=== PATIENT | female | born 1995 | race Caucasian/White ===

== ENCOUNTER 2017-07-18 13:38 | Emergency (ER) | payer MEDICAID ==
[2017-02-02 21:54] VITALS: Ht 160 cm; Wt 79.4 kg
[~2017-07-18] VITALS: Ht 160 cm; Wt 79.4 kg
[~2017-07-18 13:38] MED LIST: ACET500T68 PO; CEPH500T7 PO; CYCL10TA29 PO; DOCU-416 PO; IBUP800T37 PO; ONDA4TAB97 PO; OXYC-865 PO; PREN-127 PO
--- NOTE | 2017-07-18 13:40 | ER Report ---
History and Physical Time Seen By MD: 13:40 HPI/ROS CHIEF COMPLAINT: Right wrist pain HISTORY OF PRESENT ILLNESS: Patient is a 21-year-old female who is being followed by Dr. Mora at [facility] for right wrist injury. She had been in a cast for the past 4 weeks which was just removed about 2-3 days ago. She has returned to work, but states since removal of the cast she's having increasing pain. Is unclear exactly what the nature of the injury as the patient is unable to give me a specific diagnosis. But it sounds as if she may have had some ligamentous injuries possibly to the scapholunate joint and the lateral wrist retinaculum. Patient received all of her care at [facility] I'm unable to pull up any outside records to find out what the actual diagnosis and treatment was. Patient is right-hand dominant. 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 REVIEW OF SYSTEMS: Respiratory: No cough, no dyspnea. Cardiovascular: No chest pain, no palpitations. Gastrointestinal: No vomiting, no abdominal pain. Musculoskeletal: No back pain. Allergies: Coded Allergies: Latex, Natural Rubber (Verified Allergy, Unknown, 02/10/17) Penicillins (Verified Allergy, Unknown, rash, 02/10/17) shellfish derived (Verified Allergy, Unknown, 02/10/17) Home Meds Active Scripts Hydrocodone Bit/Acetaminophen (HYDROCODON-ACETAMINOPHEN 5-325) 1 Each Tablet, 1 EACH PO Q6-8H Y for PAIN, #15 TAB 0 Refills TAKE ONE TABLET BY MOUTH EVERY 4-6 HOURS NEEDED FOR PAIN Prov:PALOOM ALICEA MD 07/18/17 Reported Medications Fluoxetine Hcl (FLUOXETINE HCL) 20 Mg Capsule, 20 MG PO QDAY, CAPSULE 07/18/17 Clonazepam (CLONAZEPAM) 1 Mg Tab.rapdis, 1 MG PO BID, #6 TAB 07/18/17 Discontinued Scripts Cephalexin 500 Mg Tab (KEFLEX 500 MG TAB) 500 Mg Tablet, 500 MG PO Q6H, #28 TAB Prov:ELIANA SIFUENTES PA-C 05/04/17 Past Medical/Surgical History Right wrist injury Hx Smoking: Yes (not in pg) Smoking Status: Former Smoker Exposure to Second Hand Smoke?: No Hx Substance Use Disorder: No Hx Alcohol Use: No Constitutional Vital Sign - Last 24 Hours 07/18/17 07/18/17 07/18/17 14:00 14:09 14:41 Temp 98.0 98.0 Pulse 70 70 Resp 18 16 B/P (MAP) 115/76 119/83 (95) Pulse Ox 94 95 O2 Delivery Room Air Room Air Physical Exam General appearance: alert no distress Right hand: There is no significant swelling. There is no obvious deformity to the hand. There is moderate tenderness of the in the snuffbox is also tenderness over the distal ulna. The patient is able to give a thumbs up sign, is able to make an okay sign, and is able to AB duct the fingers. Sensation is intact over the dorsal 1st web space, the volar aspect of the 2nd finger, and the volar aspect of the 5th finger. Capillary refill is brisk. Vascular exam: Normal pulses and capillary refill in the fingers [ ] DIFFERENTIAL DIAGNOSIS: After history and physical exam differential diagnosis was considered for hand injury including contusion, fracture, ligamentous and tendon injuries. Medical Decision Making ED Course/Re-evaluation ED Course 07/18/2017 2:22:03 pm Plan at this time will be to re-x-ray of the right wrist. If negative I will place in a thumb spica splint will have patient follow up with Dr. Mora and we' ll give a short course of pain medicine Decision to Disposition Date: Jul 18, 2017 Decision to Disposition Time: 14:35 Depart Departure Latest Vital Signs Vital Signs Date Time Temp Pulse Resp B/P (MAP) Pulse Ox O2 Delivery O2 Flow Rate FiO2 07/18/17 14:41 70 16 119/83 (95) 95 Room Air 07/18/17 14:09 98.0 Impression: Primary Impression: Wrist pain, right Condition: Improved Disposition: HOME OR SELF-CARE Referrals: HAILEY MORA MD New Scripts Hydrocodone Bit/Acetaminophen (HYDROCODON-ACETAMINOPHEN 5-325) 1 Each Tablet 1 EACH PO Q6-8H Y for PAIN, #15 TAB 0 Refills TAKE ONE TABLET BY MOUTH EVERY 4-6 HOURS NEEDED FOR PAIN Prov: PALOMO ALICEA MD 07/18/17 Patient Instructions: Splint Care (DC), Wrist Injury (ED) PALOMO ALICEA MD Jul 18, 2017 13:40
[2017-07-18] MEDS ORDERED: IBUPROFEN 800 MG TAB PO ONE (13:45)
[2017-07-18] MEDS ORDERED: CLON-389 PO (14:14)
[2017-07-18] MEDS ORDERED: FLUO-177 PO (14:15)
[2017-07-18] MEDS ORDERED: LOR5/325 PO (14:27)
[2017-07-18 14:41] VITALS: BP 119/83
--- NOTE | 2017-07-18 14:44 | RADIOLOGY IMAGING REPORT ---
FACILITY: [facility] - [place] PATIENT NAME: Naima Martinez : 1995 MR: [id number] V: [id number] EXAM DATE: ORDERING PHYSICIAN: PALOMO ALICEA TECHNOLOGIST: Location: [facility] Patient: Naima Martinez : 1995 Visit/Account:[id number] Date of Sevice: 07/18/2017 Exam type: WRIST RIGHT MIN 3 VIEW History: The one month ago, was casted with new pain Comparison: June 06, 2017 Findings: There is no evidence of acute fracture or dislocation identified. There appears to be subtle soft ti ssue swelling about the radiocarpal joint.. IMPRESSION: 1. No evidence of acute fracture dislocation involving the right wrist although there appears to be subtle soft tissue swelling about the right radiocarpal joint. Report Dictated By: Shonda Smith MD at 07/18/2017 2:39 PM Report E-Signed By: Shonda Smith MD at 07/18/2017 2:40 PM WSN:DULCE MARIA
== END 2017-07-18 14:52 | disposition home or self-care (01) ==
LOC: ER 13:40
DX: M25.531 Pain in right wrist (principal)
CPT/HCPCS: 99282

== ENCOUNTER 2017-07-20 11:58 | Emergency (ER) | payer MEDICAID ==
[2017-02-02 21:54] VITALS: Ht 160 cm; Wt 79.4 kg
[~2017-07-20] VITALS: Ht 160 cm; Wt 79.4 kg
[~2017-07-20 11:58] MED LIST changes: +CLON-389 PO; +FLUO-177 PO; +LOR5/325 PO
--- NOTE | 2017-07-20 12:03 | ER Report ---
History and Physical Time Seen By MD: 12:03 HPI/ROS CHIEF COMPLAINT: Left wrist pain HISTORY OF PRESENT ILLNESS: Patient is a 21-year-old female who I saw on July 18 for complaint of right wrist pain. She states that she had been followed by Dr. Mora for some ligamentous injuries. And just recently had a cast removed. She is having severe pain while at work she stated that she was going to be following up with Dr. johnson soon. I did some x-rays at that time which failed to reveal any bony type of injury. Neurological exam at that time and muscul0 skeletal exam normal; patient during her initial visit asked specifically about prescription for narcotic pain pain medication stating that her traditional [id number] pain medicines were not working. We did prescribe Vicodin with instructions to take one tablet every 6-8 hours as needed for pain with a supply of 15 tablets. Patient states that she was taking 2 tablets every 4 hours which again was not the way the medication was prescribed. Nursing staff (Jemma Agosto) informed me as well that she wanted to be changed to the 10 mg form of hydrocodone just prior to her visit today. Patient states that she was at work today of the splint was intact but states that she was having severe pain work and had to leave. Allergies: Coded Allergies: Latex, Natural Rubber (Verified Allergy, Unknown, 07/20/17) Penicillins (Verified Allergy, Unknown, rash, 07/20/17) shellfish derived (Verified Allergy, Unknown, 07/20/17) Home Meds Reported Medications Fluoxetine Hcl (FLUOXETINE HCL) 20 Mg Capsule, 20 MG PO QDAY, CAPSULE 07/18/17 Clonazepam (CLONAZEPAM) 1 Mg Tab.rapdis, 1 MG PO BID, #6 TAB 07/18/17 Discontinued Scripts Hydrocodone Bit/Acetaminophen (HYDROCODON-ACETAMINOPHEN 5-325) 1 Each Tablet, 1 EACH PO Q6-8H Y for PAIN, #15 TAB 0 Refills TAKE ONE TABLET BY MOUTH EVERY 4-6 HOURS NEEDED FOR PAIN Prov:PALOMO ALICEA MD 07/18/17 Cephalexin 500 Mg Tab (KEFLEX 500 MG TAB) 500 Mg Tablet, 500 MG PO Q6H, #28 TAB Prov:ELIANA SIFUENTES PA-C 05/04/17 Past Medical/Surgical History Left wrist pain Hx Smoking: Yes (not in pg) Smoking Status: Former Smoker Exposure to Second Hand Smoke?: No Hx Substance Use Disorder: No Hx Alcohol Use: No Constitutional Vital Sign - Last 24 Hours 07/20/17 07/20/17 12:01 12:22 Temp 98.2 Pulse 70 74 Resp 16 16 B/P (MAP) 122/87 118/74 (89) Pulse Ox 95 94 O2 Delivery Room Air Room Air Physical Exam General appearance: alert no distress Right hand: There is no significant swelling. There is no obvious deformity to the hand. There is tenderness to the radial and ulnar aspect of the wrist. Exam is unchanged from July 18 in my opinion. Skin: Intact Neurologic exam: The patient has normal sensation distal to the injury. Tendon function is intact. Vascular exam: Normal pulses and capillary refill in the fingers Medical Decision Making ED Course/Re-evaluation ED Course 07/20/2017 12:11:47 pm I'm concerned that this patient may be seeking narcotic pain medications. I explained to her that she should still have half of her prescription if she was taking it appropriately. She claims that the bottle was marked to take one tablet every 48 hours; I stated that the prescription I sent clearly shows one tablet every 6-8 hours and informed her that she told me she was actually taking 2 tablets every 4 hours I explained I would prescribe her no further narcotic medications at this time as we do not treat chronic pain conditions typically. I did offer her alternative pain medicine she agreed to an injection of Toradol intramuscularly. We will have the patient maintain her splint and follow-up with Dr. Mora for chronic pain issues to her wrist Decision to Disposition Date: Jul 20, 2017 Decision to Disposition Time: 12:13 Depart Departure Latest Vital Signs Vital Signs Date Time Temp Pulse Resp B/P (MAP) Pulse Ox O2 Delivery O2 Flow Rate FiO2 07/20/17 12:22 74 16 118/74 (89) 94 Room Air 07/20/17 12:01 98.2 Impression: Primary Impression: Wrist pain, right Condition: Condition Unchanged Disposition: HOME OR SELF-CARE Referrals: HAILEY MORA MD Call tomorrow to schedule as soon as possible appointment follow-up for your persistent wrist pain Departure Forms: ER Transition Record, Medications Reconciliation, Off Work/ School Form, School or Work Release?: Work Number of days to be released: 2 Patient Portal Information Patient Instructions: Splint Care (DC), Wrist Sprain (DC) Additional Instructions: Call tomorrow July 21 to arrange a appointment and reevaluation as soon as possible. Continue to wear splint until reevaluated by orthopedics. PALOMO ALICEA MD Jul 20, 2017 12:03
[2017-07-20] MEDS ORDERED: KETOROLAC 30 MG/ML VIAL IM ONE (12:20)
[2017-07-20 12:22] VITALS: BP 118/74
== END 2017-07-20 12:25 | disposition home or self-care (01) ==
LOC: ER 12:02
DX: M25.532 Pain in left wrist (principal)
CPT/HCPCS: 96372; 99282; J1885